=== PATIENT | female | born 1990 | race Two or more races ===

== ENCOUNTER 2016-10-29 17:28 | Outpatient (CLI) | payer OTHER ==
[2016-10-29 18:08] VITALS: BMI 30.2
== END 2016-10-29 20:05 | disposition home or self-care (01) ==
LOC: FBCOUT 17:28 → FBC 17:30 → FBCOUT 20:05
PROVIDERS: ATTEND Licensed Practical Nurse
DX: O26.899 Other specified pregnancy related conditions, unspecified trimester (principal); Z3A.00 Weeks of gestation of pregnancy not specified
CPT/HCPCS: 59025; G0463